=== PATIENT | female | born 1980 | race Two or more races ===

== ENCOUNTER 2017-03-07 17:53 | Emergency (ER) | payer MEDICAID ==
[~2017-03-07] VITALS: Ht 165.1 cm; Wt 58.0 kg
--- NOTE | 2017-03-07 19:10 | NUR ---
Patient discharged to home in stable conditon. Written and verbal after care instructions given. Patient verbalizes understanding of instructions.
== END 2017-03-07 19:13 | disposition home or self-care (01) ==
LOC: ER 17:53
DX: H60.92 Unspecified otitis externa, left ear (principal)
CPT/HCPCS: 99283; A4663

== ENCOUNTER 2017-03-11 21:49 | Emergency (ER) | payer MEDICAID ==
--- NOTE | 2017-03-11 22:17 | NUR ---
1ST CALL, NO ONE IN WAITING ROOM ANSWERS TO THAT NAME...
--- NOTE | 2017-03-11 22:37 | NUR ---
2ND CALL, NO SHOW... WILL BE REMOVED FROM TRACKER
== END 2017-03-11 22:39 | disposition left against medical advice (07) ==
LOC: ER 21:49
DX: H93.90 Unspecified disorder of ear, unspecified ear (principal); Z53.21 Procedure and treatment not carried out due to patient leaving prior to being seen by health care provider